=== PATIENT | male | born 1960 | race Caucasian/White ===

== ENCOUNTER 2021-10-23 19:03 | Emergency (ER) | payer MEDICAID ==
[~2021-10-23] VITALS: Ht 167.6 cm; Wt 88.5 kg
--- NOTE | 2021-10-23 19:10 | NUR ---
[facility] in [facility] - 10/23/21 at [email or web address] Godfrey evaluating patient at bedside
--- NOTE | 2021-10-23 19:24 | NUR ---
Patient to ER bed H1 to gown for evaluation. Side rails up.
--- NOTE | 2021-10-23 19:25 | NUR ---
Dr Godfrey evaluating patient at bedside
[2021-10-23 19:26] VITALS: BP_SYST 179
--- NOTE | 2021-10-23 20:24 | NUR ---
Pt moved to bed 01
--- NOTE | 2021-10-23 20:28 | NUR ---
Pt awake a/o x4. speech clear and coherent. dauighter at bedside. pt cc epistaxis 3x within the past 24 hours with visible blood clots lasting few hours each episode. Pt denies facial trauma / injury. states he took a viagra pill and during intercourse he started having epistaxis. he denies sob at this time but states during epistaxis he experiences sob. denies n/v/d/fever. denies chest pain. c/o pressure behind both eyes. bleeding is controlled at this time. pt kept comfortable in bed. will continue to monitor.
--- NOTE | 2021-10-23 21:42 | NUR ---
Dr Godfrey at bedside for insertion of rhino rocket, pt erin well
--- NOTE | 2021-10-23 21:47 | NUR ---
Pt discharged. ACI reviewed with pt and pts daughter, verbalized understanding. to follow up with pmd within the next 1-2 days or return to ed if condition worsens. hr 111, Dr Godfrey made aware, to continue with dc, pt in nad. ambulatory with steady gait unassisted. nad.
[2021-10-23 21:48] VITALS: BP_SYST 149
== END 2021-10-23 21:47 | disposition home or self-care (01) ==
LOC: SED 19:03
DX: R04.0 Epistaxis (principal); I10 Essential (primary) hypertension; E11.9 Type 2 diabetes mellitus without complications
CPT/HCPCS: 82962; 99282; 99284